=== PATIENT | female | born 1980 | race Two or more races ===

== ENCOUNTER 2024-11-07 14:54 | Emergency (ER) | payer MEDICAID, SELFPAY ==
[2024-11-07 15:18] VITALS: BP 171/90; PULSE 82; RESP 18; TEMP 36.8; O2SAT 98
--- NOTE | 2024-11-07 15:25 | PD.EDRME ---
Rapid Medical Screening Exam RME Arrival date/time: 11/07/24 14:54 44 year old f with c/o of abd pain I have greeted and performed a focused initial assessment of this patient. A comprehensive ED assessment and evaluation of the patient, analysis of all test results, and completion of the medical decision making process will be conducted by additional ED providers. Chief Complaint: Abdominal Pain Time Seen by Provider: 11/07/24 14:59 Vital signs: Vital Signs Temperature 98.2 F 11/07/24 15:18 Pulse Rate 82 11/07/24 15:18 Respiratory Rate 18 11/07/24 15:18 Blood Pressure 171/90 H 11/07/24 15:18 Pulse Oximetry (%) 98 11/07/24 15:18 Oxygen Delivery Method Room Air 11/07/24 15:18
[2024-11-07 15:40] LABS: Basophils % (Auto) 1 % (0-2.5); Eosinophils % (Auto) 0 % (0-10); Hematocrit 34.5 % (36.0-46.0); Hemoglobin 10.8 g/dL (12.0-16.0); Immature Granulocytes % (Auto) 0 % (0-0); Immature Granulocytes Auto 0.03 Thou/mm3 (0.00-0.00); Lymphocytes # (Auto) 1.4 Thou/mm3 (1.0-4.8); Lymphocytes % (Auto) 17 % (10-50); Mean Corpuscular HGB Conc 31.3 g/dl (31.0-37.0); Mean Corpuscular Hemoglobin 22.5 pg (25.0-35.0); Mean Corpuscular Volume 72 fL (80-100); Monocytes # (Auto) 0.3 Thou/mm3 (0.0-0.8); Monocytes % (Auto) 4 % (0-12); Neutrophils # (Auto) 6.5 Thou/mm3 (1.8-7.7); Neutrophils % (Auto) 79 % (37-80); Nucleated Red Blood Cell % 0 /100 WBC (0); Platelet Count 412 Thou/mm3 (140-440); RDW Standard Deviation 44.4 fL (36.4-46.3); Red Blood Count 4.79 Miln/mm3 (4.00-5.20); White Blood Count 8.3 Thou/mm3 (3.6-11.0)
[2024-11-07 15:43] LABS: Beta Hydroxybutyrate 0.4 mmol/L (<0.6)
[2024-11-07 15:59] LABS: Alanine Aminotransferase 11 U/L (10-49); Albumin/Globulin Ratio 1.4 (1.2-2.2); Alkaline Phosphatase 65 U/L (46-116); Anion Gap 8 (7-16); Aspartate Amino Transferase < 10 U/L (0-34); BUN/Creatinine Ratio 21 Ratio (12-20); Bilirubin,Total 0.4 mg/dL (0.3-1.2); Blood Urea Nitrogen 21 mg/dL (9-23); Chloride 98 mMol/L (98-107); Globulin 3.6 gm/dL (2.3-3.5); Glucose 193 mg/dL (74-106); Lipase 41 U/L (12-53); Osmolality,Calculated 279 (275-295); Potassium 4.2 mMol/L (3.4-5.1); Sodium 136 mMol/L (136-145); Total Protein 8.6 gm/dL (5.7-8.2); eGFR > 60 See Note
[2024-11-07 16:01] LABS: HCG,Qualitative Serum Negative
[2024-11-07 16:58] LABS: Collection Type, Urine Voided
[2024-11-07] MEDS: ONDANSETRON ODT 4 MG TABRAP PO (17:10)
[2024-11-07 17:29] LABS: Amorphous Crystals,Urine Present (Absent); Bacteria,Urine Rare; Bilirubin,Urine Negative (Negative); Blood,Urine Negative (Negative); Clarity,Urine Clear (Clear/Hazy); Color,Urine Lt-Yellow (Lt Yel-Yel); Glucose, Urine 1+ (Negative); Ketones,Urine 1+ (Negative); Leukocyte Esterase,Urine Negative (Negative); Nitrite,Urine Negative (Negative); Protein,Urine 3+ (Neg - Trace); RBC,Urine 6 /hpf (0-3); Specific Gravity,Urine 1.025 (1.001-1.035); Squamous Epithelial Cell,Urine 3 /hpf (0-5); Urobilinogen,Urine Negative mg/dL (0.0-1.0); WBC,Urine 2 /hpf (0-5)
[2024-11-07 17:48] VITALS: BP 213/97; PULSE 82; RESP 18; TEMP 36.6; O2SAT 100
--- NOTE | 2024-11-07 19:42 | XR_ITS ---
Examination: CT abdomen and pelvis without contrast. Coronal 3-D reconstructions. Sagittal 2-D reconstructions. Date and time of exam:November 07, 20242001 hrs. Comparison May 09, 2024 Indications: Bilateral flank pain beginning today CTDI: vol (mGy): 10.5 DLP: (mGycm): 548 Technique: Axial images of the abdomen have been obtained, 3 mm slice thickness Intravenous contrast material has not been administered. Low dose protocols were performed. One or more of the following dose reduction techniques were used; automated exposure control, adjustment of the mA and/or KV according to patient size, use of iterative reconstruction technique. Findings: No focal liver or splenic lesions No gallstones No pancreatic mass Normal adrenal glands Significant left moderate right renal parenchymal scar formation Perinephric stranding Mild wall thickening involving the pelvicalyceal systems and ureters consistent with urinary tract infection Normal appendix Anteverted uterus with multiple uterine fundal masses No bladder mass Moderate to advanced disc narrowing L5-S1 with 4 mm central lumbar disc bulge Impression: Significant left moderate right renal parenchymal scar formation Perinephric stranding, mild wall thickening pelvicalyceal systems consistent with urinary tract infection No hydronephrosis or ureteral calculi Normal appendix Recommend pelvic sonography to assess multiple uterine fundal masses
[2024-11-07] MEDS: METOCLOPRAMIDE INJ 5 MG/ML VIAL 2 ML 10 MG IM (19:52)
[2024-11-07] MEDS: KETOROLAC INJ 60 MG/2 ML VIAL IM (19:52)
[2024-11-07] MEDS: FAMOTIDINE 20 MG TABLET PO (19:53)
--- NOTE | 2024-11-07 20:00 | PC.NURSE ---
Pt taken to CT via wheelchair.
--- NOTE | 2024-11-07 20:04 | EDNOTE_ITS ---
ED Abdominal Pain RME/HPI General Chief Complaint: Abdominal Pain Stated complaint: BAD PAIN IN STOMACH X3 Time seen by provider: 11/07/24 14:59 Arrival date/time: 11/07/24 14:54 This is a 44-year-old female that comes in with complaints of epigastric pain. That radiates to her right side. Patient has some mild back pain. Patient states she was just seen at [facility] and was told that something is wrong with her stomach. Patient was given omeprazole as a prescription. Patient does not remember what the diagnosis was but was told to take omeprazole. Patient describes the pain as a sharp pain in the epigastric area that also states it wilson. Patient states she had an ultrasound done in the last few days and was told her gallbladder was okay. Patient has a history of diabetes, high blood pressure, hyperlipidemia. Patient states she did not take any of her blood pressure medications today. RME / HPI RME / HPI narrative: 11/07/24 14:54 44 year old f with c/o of abd pain I have greeted and performed a focused initial assessment of this patient. A comprehensive ED assessment and evaluation of the patient, analysis of all test results, and completion of the medical decision making process will be conducted by additional ED providers. Related Data Home Medications ?Medication ?Instructions ?Recorded ?Confirmed metformin 1,000 mg tablet 1,000 mg PO BID 05/11/2411/02 valsartan 40 mg tablet 40 mg PO QDAY 05/11/2405/11 Previous Rx's ?Medication ?Instructions ?Recorded blood sugar diagnostic (Advanced #100 ea 04/02/22 Glucose Meter Test Strips) blood-glucose meter (Accu-Chek #1 ea 04/02/22 Guide Glucose Meter) lancets 17 gauge #100 ea 04/02/22 pen needle, diabetic 29 gauge x #100 ea 04/02/22 1/2 (1st Tier Unifine Pentips) blood sugar diagnostic (FreeStyle #100 ea 05/12/24 Test strips) Allergies Allergy/AdvReac Type Severity Reaction Status Date / Time No Known Allergies Allergy Verified 11/07/24 14:56 Review of Systems Review of Systems Systems Reviewed: All systems reviewed, normal except as documented Past Medical History Past Medical History CARDIAC: Positive Hypertension ENDOCRINE: Positive Diabetes Mellitus Type 2 HEMATOLOGIC: Positive Anemia Surgical History SURGICAL: Positive Tubal Ligation and Section Social History SMOKING STATUS: Never smoker SUBSTANCE USE: does not use ALCOHOL: Never ED Exam General General appearance: Present alert and in no apparent distress Head Head exam: Present atraumatic Eye Eye exam: Present normal appearance, PERRL and EOMI ENT ENT exam: Present normal exam, normal oropharynx and mucous membranes moist Neck Neck exam: Present normal inspection, full ROM and trachea midline Chest Chest inspection: Present normal inspection and symmetric chest wall rise Respiratory Respiratory exam: Present normal lung sounds bilaterally Cardiovascular Cardiovascular exam: Present regular rate, normal rhythm and normal heart sounds Abdominal Exam Abdominal exam: Present soft Extremities Exam Extremities exam: Present normal inspection and full ROM Back Exam Back exam: Present normal inspection and full ROM Neurological Exam Neurological exam: Present alert, oriented X3 and CN II-XII intact Psychiatric Psychiatric exam: Present normal affect and normal mood Skin Skin exam: Present warm, dry, intact and normal color Course Quality Measures none Orders Category Date Time Status Blood glucose [Bedside Blood Glucose] NOW Care 11/07/24 15:[address] abdomen pelvis wo con Stat Exams 11/07/24 19:42 Completed Beta Hydroxybutyrate Stat Lab 11/07/24 15:33 Completed CBC Stat Lab 11/07/24 15:33 Completed CMP [Comprehensive Metabolic Panel] Stat Lab 11/07/24 15:33 Completed HCG,Qualitative Serum Stat Lab 11/07/24 15:33 Completed Lipase Stat Lab 11/07/24 15:33 Completed UA [Urinalysis] Stat Lab 11/07/24 16:35 Completed Famotidine [Pepcid] Med 11/07/24 19:43 Discontinued 20 mg PO X1 ONE Ketorolac Inj [Toradol Inj] Med 11/07/24 19:43 Discontinued 60 mg IM X1 ONE Metoclopramide Inj [Reglan Inj] Med 11/07/24 19:43 Discontinued 10 mg IM X1 ONE Ondansetron Odt [Zofran Odt] Med 11/07/24 15:22 Discontinued 4 mg PO X1 ONE Valsartan [Diovan] Med 11/07/24 19:43 Discontinued 40 mg PO X1 ONE cefTRIAXone [Rocephin] 1,000 mg Med 11/07/24 20:54 Discontinued Lidocaine 1% 20 ml [Xylocaine 1% 20 ML] 2.1 ml IM X1 Vital Signs Vital signs: Vital Signs Temperature 98.2 F 11/07/24 15:18 Pulse Rate 82 11/07/24 15:18 Respiratory Rate 18 11/07/24 15:18 Blood Pressure 171/90 H 11/07/24 15:18 Pulse Oximetry (%) 98 11/07/24 15:18 Oxygen Delivery Method Room Air 11/07/24 15:18 Abdominal Pain MDM MDM Narrative MDM Narrative:: This is a 44-year-old female that comes in with complaints of epigastric pain. That radiates to her right side. Patient has some mild back pain. Patient states she was just seen at [facility] and was told that something is wrong with her stomach. Patient was given omeprazole as a prescription. Patient does not remember what the diagnosis was but was told to take omeprazole. Patient describes the pain as a sharp pain in the epigastric area that also states it wilson. Patient states she had an ultrasound done I quit Eydelto in the last few days and was told her gallbladder was okay. Patient has a history of diabetes, high blood pressure, hyperlipidemia. Patient states she did not take any of her blood pressure medications today. Patient CBC shows white count 8.3, hemoglobin and hematocrit are 10.8 and 34.5, this BMP shows a glucose of 193 otherwise unremarkable, lipase 41 beta hy droxybutyrate is 0.4, hCG urine negative urine shows RBCs in her urine negative for leukocyte Estrace. Patient had a previous us pelvic here and also states she had one order by primary provider. Pt told to follow up wit primary provider in 1-2 days. Pt feels comfortable with current plan of care. Ct abdomen and pelvis: Yet he has got they have impression: Significant left moderate right renal parenchymal scar formation Perinephric stranding, mild wall thickening pelvicalyceal systems consistent with urinary tract infection No hydronephrosis or ureteral calculi Normal appendix Recommend pelvic sonography to assess multiple uterine fundal masses Patient data External records reviewed:: [facility] previous records Clinical information provided by:: patient Social determinants that could affect healthcare access:: none Patient has the following chronic illnesses:: see hpi How is presenting disease/condition affected by chronic disease/condition?: no chronic disease Evaluation data The following diagnostics were reviewed and interpreted by me:: lab results and radiology exam(s) Lab and/or radiology exams considered but not ordered:: none Interpretation Summary: see note Medications / Prescriptions Medications or Prescriptions considered but not ordered:: none Medication administrations:: Medication Administration History Discontinued Medications Ceftriaxone Sodium 1,000 mg/ (Lidocaine HCl 2.1 ml) 0 mg IM X1 ONE Stop: 11/07/24 20:55 Last Admin: 11/07/24 21:14 Dose: 1,000 mg Documented By: CCT Famotidine (Famotidine 20 Mg Tablet) 20 mg PO X1 ONE Stop: 11/07/24 19:44 Last Admin: 11/07/24 19:53 Dose: 20 mg Documented By: TC Ketorolac Tromethamine (Ketorolac Inj 60 Mg/2 Ml Vial) 60 mg IM X1 ONE Stop: 11/07/24 19:44 Last Admin: 11/07/24 19:52 Dose: 60 mg Documented By: TC Metoclopramide HCl (Metoclopramide Inj 5 Mg/Ml Vial 2 Ml) 10 mg IM X1 ONE; Protocol Stop: 11/07/24 19:44 Last Admin: 11/07/24 19:52 Dose: 10 mg Documented By: TC Ondansetron HCl (Ondansetron Odt 4 Mg Tabrap) 4 mg PO X1 ONE; Protocol Stop: 11/07/24 15:23 Last Admin: 11/07/24 17:10 Dose: 4 mg Documented By: KF Valsartan (Valsartan 40 Mg Tablet) 40 mg PO X1 ONE Stop: 11/07/24 19:44 Last Admin: 11/07/24 20:17 Dose: 40 mg Documented By: CCT see mar Consultations Consultation(s) initiated? (list below): No Diagnosis Differential diagnosis abdominal pain: abdominal pain, acute appendicitis, calculus of kidney, constipation, pancreatitis and other (uti) Most likely diagnosis given after review of the tests above:: uti Admission Indicated Admission indicated?: not indicated Admission Request Was there a request for admission?: No Disposition Plan Disposition Plan: Discharge Discharge Attestation Discharge Attestation: The patient and all family members were given an opportunity to ask questions and understood the discharge instructions. Discharge instructions specifically effects, indications for sooner follow up or return to the emergency department, and the expected course of current diagnosis. Patient condition: Stable Discharge Plan Plan Patient Disposition: HOME (Self Care) Patient condition on transfer: Stable Prescriptions/Referrals Prescriptions/Med Rec: No Action (DME) blood-glucose meter [Accu-Chek Guide Glucose Meter] Misc See Rx Instructions .Route Qty: 1 0RF Rx Instructions: As directed (DME) Advanced Gluc Meter Test Strip Strip See Rx Instructions .Route Qty: 100 0RF Rx Instructions: As directed (DME) lancets 17 gauge misc See Rx Instructions .Route Qty: 100 0RF Rx Instructions: As directed (DME) pen needle, diabetic [1st Tier Unifine Pentips] 29 gauge x 1/2 needle See Rx Instructions .Route Qty: 100 0RF Rx Instructions: As directed metformin 1,000 mg Tablet 1,000 mg PO BID valsartan 40 mg Tablet 40 mg PO QDAY (DME) FreeStyle Test Strip See Rx Instructions .Route Qty: 100 0RF Rx Instructions: As directed Referrals: Jaqueline Maloney PA-C [Primary Care Provider] - In 1 week Problem List Clinical Impression: Hematuria, UTI (urinary tract infection), Hx of pelvic mass Patient/Caregiver Discharge Instructions Discharge Activity: activity as tolerated Education Materials: ED Hematuria, ED CYSTITIS Female Adult Additional Instructions: CT abdomen and pelvis shows: Impression: Significant left moderate right renal parenchymal scar formation Perinephric stranding, mild wall thickening pelvicalyceal systems consistent with urinary tract infection No hydronephrosis or ureteral calculi Normal appendix Recommend pelvic sonography to assess multiple uterine fundal masses Follow-up with primary provider in 1 to 2 days. Come back to the emergency room if symptoms change or worsen. Please follow-up with urine culture with primary provider. Print Language: Palestinian Stand Alone Forms: Rochelle Award Info., Patient Portal Info Letter PA/RADHA Supervising Physician PA/RADHA Supervising Physician: kristan
[2024-11-07 20:17] VITALS: BP 180/100; PULSE 67
[2024-11-07] MEDS: VALSARTAN 40 MG TABLET PO (20:17)
[2024-11-07 20:20] VITALS: BP 180/100; PULSE 67; RESP 18; TEMP 37.1; O2SAT 100
[2024-11-07] MEDS: cefTRIAXone 1,000 MG, LIDOCAINE 1% 20 ML 2.1 ML IM (21:14)
[2024-11-07 21:41] VITALS: BP 154/94; PULSE 71; RESP 18; TEMP 37.1; O2SAT 98
== END 2024-11-07 21:45 | disposition home or self-care (01) ==
PROVIDERS: Physician Assistant; Emergency Provider Emergency Medicine; PCP Physician Assistant
DX: N39.0 Urinary tract infection, site not specified (principal); R31.9 Hematuria, unspecified; N28.89 Other specified disorders of kidney and ureter
CPT/HCPCS: 36415; 74176; 80053; 81001; 82010; 83690; 84703; 85025; 87086; 96372; 99284; J0696; J1885; J2765; J3490; Q0162; A9270

== ENCOUNTER 2025-01-12 07:30 | Day surgery (SDC) | payer MEDICAID, SELFPAY ==
[2025-01-11 10:51] LABS: HCG Qualitative,Urine Negative
[2025-01-11 14:24] VITALS: BMI 33.7
[2025-01-12] VITALS (11 sets, daily range): BP systolic 131–218; BP diastolic 77–117; PULSE 63–80; RESP 15–24; TEMP 36.6; O2SAT 98–100; BMI 31.6
[2025-01-12] MEDS: RINGERS LACTATED 500 ML 1,000 ML 60 ML IV (08:35)
[2025-01-12] MEDS: hydrALAZINE INJ 20 MG/ML VIAL 10 MG IV (09:00)
--- NOTE | 2025-01-12 09:19 | SUR.PHASEII ---
pt arrived to [facility] via gurney drowsy but arouses to voice, breathing unlabored, report from Haven GIBSON
--- NOTE | 2025-01-12 10:04 | SUR.PHASEII ---
pt awake, alert, able to follow commands, breathing unlabored, VS stable, pt able to tolerate oral fluids without difficulty swallowing or n/v, discharge instructions given with son present using telephone private branch exchange repairer Magdalena ID#[id number] questions answered, pt discharged via wheelchair with all belongings and copies of discharge paperwork.
== END 2025-01-12 10:04 | disposition home or self-care (01) ==
PROVIDERS: PCP Physician Assistant; Referring Provider Specialist; Visit Provider Specialist
PROC: (CPT 43239; principal; 2025-01-12 08:30)
DX: K21.00 Gastro-esophageal reflux disease with esophagitis, without bleeding (principal); K44.9 Diaphragmatic hernia without obstruction or gangrene; K31.1 Adult hypertrophic pyloric stenosis; E11.9 Type 2 diabetes mellitus without complications; Z79.84 Long term (current) use of oral hypoglycemic drugs
CPT/HCPCS: 43235; 81025; J0360; J1200; J2250; J3010; J7120; A9270

== ENCOUNTER 2025-02-09 07:30 | Day surgery (SDC) | payer MEDICAID, SELFPAY ==
[2025-02-08 13:53] VITALS: BMI 34.2
[2025-02-09] VITALS (17 sets, daily range): BP systolic 134–174; BP diastolic 84–102; PULSE 55–73; RESP 13–19; TEMP 36.3–36.9; O2SAT 92–100; BMI 32.4
[2025-02-09] MEDS: RINGERS LACTATED 1000 ML 1,000 ML 60 ML IV (09:11)
[2025-02-09] MEDS: fentaNYL CIT INJ 50 mCg/ML AMP 2ML (ASD USE ONLY) IVP (09:13)
[2025-02-09] MEDS: DiphenhydrAMINE INJ 50 MG/ML VIAL 25 MG IVP (09:13)
[2025-02-09] MEDS: MIDAZOLAM INJ 1 MG/ML VIAL 2 ML (ASD USE ONLY) 2 MG IVP (09:13)
== END 2025-02-09 10:20 | disposition home or self-care (01) ==
PROVIDERS: PCP Physician Assistant; Referring Provider Specialist; Visit Provider Specialist
PROC: 0DBE8ZX Excision of Large Intestine, Via Natural or Artificial Opening Endoscopic, Diagnostic (ICD-10-PCS; CPT 45380; principal; 2025-02-09 07:30)
DX: Z12.11 Encounter for screening for malignant neoplasm of colon (principal); K64.9 Unspecified hemorrhoids; K56.2 Volvulus
CPT/HCPCS: 45378; 81025; J1200; J2250; J3010; J7120

== ENCOUNTER 2025-02-25 22:35 | Emergency (ER) | payer MEDICAID, SELFPAY ==
[2025-02-25 23:51] VITALS: BP 113/79; PULSE 95; RESP 18; TEMP 37.3; O2SAT 96
--- NOTE | 2025-02-25 23:52 | EKG_ITS ---
[facility] Test Date: 2025-02-25 Pat Name: GISELLE PERKINS Department: Room: - Gender: Female Body Trimmer: : 1980 Requested By: ED Temporary Provider Order Number: [id number] Reading MD: ED Temporary Provider Measurements Intervals [place] Rate: 102 P: 31 SC: 128 QRS: 18 QRSD: 80 T: 45 QT: 342 QTc: 446 Interpretive Statements SINUS TACHYCARDIA ABNORMAL RHYTHM ECG No previous ECG available for comparison /store/[email or web address]/[id number]/[id number].pdf
--- NOTE | 2025-02-26 00:24 | XR_ITS ---
Examination: PA chest single view TECHNIQUE: Upright PA chest single view Date and time: February 26, 2025 12:46 AM Indications: Chest pain shortness of breath today. FINDINGS: Normal heart size Lungs are clear. The osseous structures are intact IMPRESSION: No active disease
[2025-02-26] MEDS: FAMOTIDINE 20 MG TABLET 40 MG PO (00:39)
[2025-02-26] MEDS: ONDANSETRON ODT 4 MG TABRAP PO (00:40)
[2025-02-26] MEDS: LIDOCAINE VISCOUS 2% 15 ML UDC PO (00:40)
[2025-02-26] MEDS: MG HYD/AL HYD/SIME (Maalox Reg) SUSP 30 ML UDC PO (00:40)
[2025-02-26 00:55] LABS: Basophils # (Auto) 0.1 Thou/mm3 (0.0-0.2); Basophils % (Auto) 1 % (0-2.5); Eosinophils % (Auto) 0 % (0-10); Hematocrit 33.2 % (36.0-46.0); Hemoglobin 11.3 g/dL (12.0-16.0); Immature Granulocytes % (Auto) 1 % (0-0); Immature Granulocytes Auto 0.05 Thou/mm3 (0.00-0.00); Lymphocytes # (Auto) 2.5 Thou/mm3 (1.0-4.8); Lymphocytes % (Auto) 22 % (10-50); Mean Corpuscular Hemoglobin 26.3 pg (25.0-35.0); Mean Corpuscular Volume 77 fL (80-100); Monocytes # (Auto) 0.9 Thou/mm3 (0.0-0.8); Monocytes % (Auto) 9 % (0-12); Neutrophils # (Auto) 7.6 Thou/mm3 (1.8-7.7); Neutrophils % (Auto) 68 % (37-80); Nucleated Red Blood Cell % 0 /100 WBC (0); Platelet Count 360 Thou/mm3 (140-440); RDW Standard Deviation 44.9 fL (36.4-46.3); White Blood Count 11.1 Thou/mm3 (3.6-11.0)
[2025-02-26 01:29] LABS: Alanine Aminotransferase < 7 U/L (10-49); Albumin, Serum 4.5 gm/dL (3.5-5.0); Albumin/Globulin Ratio 1.6 (1.2-2.2); Alkaline Phosphatase 59 U/L (46-116); Anion Gap 7 (7-16); Aspartate Amino Transferase 12 U/L (0-34); BUN/Creatinine Ratio 12 Ratio (12-20); Bilirubin,Total 0.5 mg/dL (0.3-1.2); Blood Urea Nitrogen 13 mg/dL (9-23); Calcium 9.7 mg/dL (8.3-10.6); Calcium (Corrected) 9.7 mg/dL (8.5-10.1); Carbon Dioxide 30.2 mMol/L (20.0-31.0); Chloride 97 mMol/L (98-107); Creatinine (Component) 1.1 mg/dL (0.6-1.3); Globulin 2.9 gm/dL (2.3-3.5); Glucose 144 mg/dL (74-106); Lipase 29 U/L (12-53); Osmolality,Calculated 271 (275-295); Potassium 3.6 mMol/L (3.4-5.1); Sodium 134 mMol/L (136-145); Total Protein 7.4 gm/dL (5.7-8.2); Troponin I < 0.020 ng/mL (0.0-0.045); eGFR > 60 See Note
[2025-02-26 02:57] VITALS: RESP 16
--- NOTE | 2025-02-26 05:19 | PD.EDCHEST ---
ED Chest Pain RME/HPI General Chief Complaint: General Adult/Misc Complain Stated Complaint: EPIGASTRIC CHEST AREA PAIN Time Seen by Provider: 02/26/25 00:24 Arrival date/time: 02/25/25 22:35 45F with history of DM, HTN, and esophagitis (confirmed recent EGD/colonoscopy) presents to ED with 1 day of burning epigastric pain that radiates up to throat after she drank some water. Limitations: no limitations Related Data Home Medications ?Medication ?Instructions ?Recorded ?Confirmed metformin 1,000 mg tablet 1,000 mg PO BID 05/11/24 02/08/25 valsartan 40 mg tablet 40 mg PO QDAY 05/11/24 02/08/25 chlorthalidone 25 mg tablet 25 mg PO QDAY 01/12/25 02/08/25 pantoprazole 40 mg tablet,delayed 40 mg PO QAM 01/12/25 02/08/25 release Previous Rx's ?Medication ?Instructions ?Recorded blood sugar diagnostic (Advanced #100 ea 04/02/22 Glucose Meter Test Strips) blood-glucose meter (Accu-Chek #1 ea 04/02/22 Guide Glucose Meter) lancets 17 gauge #100 ea 04/02/22 pen needle, diabetic 29 gauge x #100 ea 04/02/22 1/2 (1st Tier Unifine Pentips) blood sugar diagnostic (FreeStyle #100 ea 05/12/24 Test strips) ondansetron 4 mg disintegrating 4 mg PO Q8H PRN nausea and 02/26/25 tablet vomiting #14 tabs Allergies Allergy/AdvReac Type Severity Reaction Status Date / Time No Known Allergies Allergy Verified 02/09/25 08:03 Review of Systems Review of Systems Systems Reviewed: All systems reviewed, normal except as documented Constitutional Constitutional: Reports system reviewed and no additional complaints, except as documented, Denies fever(s) and Denies headache(s) ENT Ears, Nose, Mouth, and Throat: Denies disequilibrium and Denies headache(s) Cardiovascular Cardiovascular: Reports system reviewed and no additional complaints, except as documented, Reports as per HPI, Reports chest pain and Denies dyspnea Respiratory Respiratory: Reports system reviewed and no additional complaints, except as documented, Denies cough and Denies dyspnea Gastrointestinal Gastrointestinal: Reports system reviewed and no additional complaints, except as documented, Reports as per HPI, Reports abdominal pain, Denies nausea and Denies vomiting Neurologic Neurologic: Reports system reviewed and no additional complaints, except as documented, Denies confusion, Denies disequilibrium and Denies headache(s) Psychiatric Psychiatric: Denies confusion Past Medical History Past Medical History NEUROLOGIC: Negative Seizures CARDIAC: Positive Cardiac Disorders and Hypertension; Negative Congestive Heart Failure RESPIRATORY: Negative Chronic Obstructive Pulmonary Disease (COPD) or Asthma GASTROINTESTINAL: Positive Gastrointestinal Disorders (Esophagitis) and Gastroesophageal Reflux Disease GENITOURINARY: Positive Genitourinary Disorders (pyelonephritis with ecoli septicemia 2021); Negative Renal Disease REPRODUCTIVE: Negative Pelvic Inflammatory Disease MUSCULOSKELETAL: Negative Musculoskeletal Disorders ENDOCRINE: Positive Diabetes Mellitus Type 2; Negative Diabetes Mellitus Type 1 HEMATOLOGIC: Positive Anemia; Negative Sickle Cell Disease OTHER HISTORY: Negative Blood Transfusions or Anesthesia Reactions Surgical History SURGICAL: Positive Tubal Ligation and Section (x4) Social History SMOKING STATUS: Never smoker SUBSTANCE USE: does not use ED Exam General Limitations: Present no limitations General appearance: Present alert and in no apparent distress Head Head exam: Present atraumatic Eye Eye exam: Present normal appearance, PERRL and EOMI ENT ENT exam: Present normal exam, normal oropharynx and mucous membranes moist Neck Neck exam: Present normal inspection, full ROM and trachea midline Chest Chest inspection: Present normal inspection and symmetric chest wall rise Respiratory Respiratory exam: Present normal lung sounds bilaterally Cardiovascular Cardiovascular exam: Present regular rate, normal rhythm and normal heart sounds Abdominal Exam Abdominal exam: Present soft and normal bowel sounds Extremities Exam Extremities exam: Present normal inspection and full ROM Back Exam Back exam: Present normal inspection and full ROM Neurological Exam Neurological exam: Present alert, oriented X3 and CN II-XII intact Psychiatric Psychiatric exam: Present normal affect and normal mood Skin Skin exam: Present warm, dry, intact and normal color Course Quality Measures none Orders Category Date Time Status EKG (ED ONLY) *Do not use* NOW Care 02/25/25 23:52 Completed EKG (ED Only) Stat Exams 02/25/25 23:52 Draft XR chest 1V portable Stat Exams 02/26/25 00:24 Taken CBC Stat Lab 02/26/25 00:39 Completed Comprehensive Metabolic Panel Stat Lab 02/26/25 00:39 Completed Lipase Stat Lab 02/26/25 00:39 Completed Troponin I Stat Lab 02/26/25 00:39 Completed Famotidine [Pepcid] Med 02/26/25 00:24 Discontinued 40 mg PO X1 ONE Lidocaine 2% Viscous [Xylocaine 2% Viscous] Med 02/26/25 00:24 Discontinued 15 ml PO X1 ONE Ondansetron Odt [Zofran Odt] Med 02/26/25 00:24 Discontinued 4 mg PO X1 ONE mg Hyd/Al Hyd/Yg Susp [Maalox Susp] Med 02/26/25 00:24 Discontinued 30 ml PO X1 ONE Vital Signs Vital signs: Vital Signs Temperature 99.2 F 02/25/25 23:51 Pulse Rate 95 02/25/25 23:51 Respiratory Rate 18 02/25/25 23:51 Blood Pressure 113/79 02/25/25 23:51 Pulse Oximetry (%) 96 02/25/25 23:51 Oxygen Delivery Method Room Air 02/25/25 23:51 O2 at 96% on RA and WNLs Chest Pain MDM Narrative MDM Narrative:: 45F with history of DM, HTN, and esophagitis (confirmed recent EGD/colonoscopy) presents to ED with 1 day of burning epigastric pain that radiates up to throat after she drank some water. Physical exam reveals normal WOB. Patient is afebrile, calm, and alert. EKG is sinus tach of 102. Wet CXR read unremarkable pending official report. No leukocytosis. CMP unremarkable. Trop normal. GI cocktail relieved symptoms. Patient data External records reviewed:: [facility] previous records Clinical information provided by:: patient Social determinants that could affect healthcare access:: none Patient has the following chronic illnesses:: DM and HTN How is presenting disease/condition affected by chronic disease/condition?: exacerbated by Evaluation data The following diagnostics were reviewed and interpreted by me:: lab results, radiology exam(s) and EKG tracing(s) Lab and/or radiology exams considered but not ordered:: ordered Interpretation Summary: above Medications / Prescriptions Medications or Prescriptions considered but not ordered:: ordered Medication administrations:: Medication Administration History Discontinued Medications Al Hydrox/Mg Hydrox/Simethicone (Mg Hyd/Al Hyd/Yg (Maalox Reg) Susp 30 Ml Udc) 30 ml PO X1 ONE Stop: 02/26/25 00:25 Last Admin: 02/26/25 00:40 Dose: 30 ml Documented By: Famotidine (Famotidine 20 Mg Tablet) 40 mg PO X1 ONE Stop: 02/26/25 00:25 Last Admin: 02/26/25 00:39 Dose: 40 mg Documented By: Lidocaine HCl (Lidocaine Viscous 2% 15 Ml Udc) 15 ml PO X1 ONE Stop: 02/26/25 00:25 Last Admin: 02/26/25 00:40 Dose: 15 ml Documented By: Ondansetron HCl (Ondansetron Odt 4 Mg Tabrap) 4 mg PO X1 ONE; Protocol Stop: 02/26/25 00:25 Last Admin: 02/26/25 00:40 Dose: 4 mg Documented By: above Consultations Consultation(s) initiated? (list below): No Diagnosis Chest Pain Differential Diagnosis: fracture of rib, pneumothorax, stable angina, unstable angina pectoris, atypical chest pain, st elevation myocardial infarction, costochondritis, chest pain, biliary colic and other (esophagitis) Most likely diagnosis given after review of the tests above:: esophagitis Admission Indicated Admission indicated?: not indicated Admission Request Was there a request for admission?: No Disposition Plan Disposition Plan: Discharge Discharge Attestation Discharge Attestation: The patient and all family members were given an opportunity to ask questions and understood the discharge instructions. Discharge instructions specifically effects, indications for sooner follow up or return to the emergency department, and the expected course of current diagnosis. Patient condition: Stable Discharge Plan Plan Patient Disposition: HOME (Self Care) Discharge Disposition comment: Stable Prescriptions/Referrals Prescriptions/Med Rec: New ondansetron 4 mg tablet,disintegrating 4 mg PO Q8H PRN (Reason: nausea and vomiting) Qty: 14 0RF No Action (DME) blood-glucose meter [Accu-Chek Guide Glucose Meter] Misc See Rx Instructions .Route Qty: 1 0RF Rx Instructions: As directed (DME) Advanced Gluc Meter Test Strip Strip See Rx Instructions .Route Qty: 100 0RF Rx Instructions: As directed (DME) lancets 17 gauge misc See Rx Instructions .Route Qty: 100 0RF Rx Instructions: As directed (DME) pen needle, diabetic [1st Tier Unifine Pentips] 29 gauge x 1/2 needle See Rx Instructions .Route Qty: 100 0RF Rx Instructions: As directed pantoprazole 40 mg tablet,delayed release (DR/EC) 40 mg PO QAM chlorthalidone 25 mg tablet 25 mg PO QDAY metformin 1,000 mg Tablet 1,000 mg PO BID valsartan 40 mg Tablet 40 mg PO QDAY (DME) FreeStyle Test Strip See Rx Instructions .Route Qty: 100 0RF Rx Instructions: As directed Referrals: Jaqueline Maloney PA-C [Primary Care Provider] - In 1 week Problem List Clinical Impression: Esophagitis Patient/Caregiver Discharge Instructions Education Materials: Esophagitis Additional Instructions: Please follow-up with PCP within 24-48 hours and return immediately if symptoms worsen. Print Language: Kittitian Stand Alone Forms: Patient Portal Info Letter PA/CAVITY PUMP OPERATOR Supervising Physician PA/RADHA Supervising Physician: Dr. Alicea
== END 2025-02-26 02:58 | disposition home or self-care (01) ==
PROVIDERS: Physician Assistant; Emergency Provider Emergency Medicine; PCP Physician Assistant
DX: K20.90 Esophagitis, unspecified without bleeding (principal); R00.0 Tachycardia, unspecified; R07.9 Chest pain, unspecified; R06.02 Shortness of breath; I10 Essential (primary) hypertension
CPT/HCPCS: 36415; 71045; 80053; 83690; 84484; 85025; 93005; 99283; J3490; Q0162; A9270

== ENCOUNTER 2025-08-25 10:28 | Observation (INO) | payer MEDICAID, SELFPAY ==
[2025-08-25 11:01] VITALS: BP 119/78; PULSE 60; RESP 16; TEMP 37.4; O2SAT 99; BMI 33.3
--- NOTE | 2025-08-25 11:15 | XR_ITS ---
Examination: CT abdomen and pelvis without contrast. Coronal 3-D reconstructions. Sagittal 2-D reconstructions. Date and time of exam: August 25, 2025, 1459 hours INDICATIONS: Mid abdominal pain beginning 1 year ago COMPARISON: November 07, 2024 CTDI: vol (mGy): 10.1 DLP: (mGycm): 571 Technique: Axial images of the abdomen have been obtained, 3 mm slice thickness Intravenous contrast material has not been administered. Low dose protocols were performed. One or more of the following dose reduction techniques were used; automated exposure control, adjustment of the mA and/or KV according to patient size, use of iterative reconstruction technique. Findings: No visualized liver or splenic lesion No gallstones No pancreatic or adrenal mass Atrophic left kidney significant left renal scar formation, moderate right renal scar formation No renal or ureteral calculi, no hydronephrosis Normal appendix No bowel obstruction Abundant stool in the rectum with mild thickening of the rectal wall No bladder mass or bladder calculi Moderate disc narrowing L5-S1 Anteverted uterus with 3 cm uterine fundal mass IMPRESSION: Atrophic left kidney with significant left renal scar formation, moderate right renal scar formation Normal appendix No bowel obstruction Mild thickening of the rectal wall, differential would include proctitis No bladder mass or bladder calculi Consider pelvic sonography to assess uterine mass
--- NOTE | 2025-08-25 11:15 | PD.EDRME ---
Rapid Medical Screening Exam RME Arrival date/time: 08/25/25 10:28 45-year-old female presents to the Emergency Department for complaint of abdominal pain Chief Complaint: Abdominal Pain Vital signs: Vital Signs Temperature 99.4 F 08/25/25 11:01 Pulse Rate 60 08/25/25 11:01 Respiratory Rate 16 08/25/25 11:01 Blood Pressure 119/78 08/25/25 11:01 Pulse Oximetry (%) 99 08/25/25 11:01 Oxygen Delivery Method Room Air 08/25/25 11:01 Vital signs reviewed by provider: Yes Exam: On exam patient is tenderness to her abdomen Clinical Impression: Lab work and imaging ordered Patient reports she recently had endoscopy
[2025-08-25 11:31] LABS: Basophils # (Auto) 0.1 Thou/mm3 (0.0-0.2); Basophils % (Auto) 1 % (0-2.5); Eosinophils # (Auto) 0.1 Thou/mm3 (0.0-0.5); Eosinophils % (Auto) 1 % (0-10); Hematocrit 36.9 % (36.0-46.0); Hemoglobin 12.5 g/dL (12.0-16.0); Immature Granulocytes Auto 0.08 Thou/mm3 (0.00-0.00); Lymphocytes # (Auto) 2.6 Thou/mm3 (1.0-4.8); Lymphocytes % (Auto) 28 % (10-50); Mean Corpuscular HGB Conc 33.9 g/dl (31.0-37.0); Mean Corpuscular Hemoglobin 29.1 pg (25.0-35.0); Mean Corpuscular Volume 86 fL (80-100); Monocytes # (Auto) 0.9 Thou/mm3 (0.0-0.8); Monocytes % (Auto) 9 % (0-12); Neutrophils # (Auto) 5.7 Thou/mm3 (1.8-7.7); Neutrophils % (Auto) 60 % (37-80); Nucleated Red Blood Cell # 0.00 Thou/mm3 (0.00-0.00); Nucleated Red Blood Cell % 0 /100 WBC (0); Platelet Count 312 Thou/mm3 (140-440); RDW Standard Deviation 42.0 fL (36.4-46.3); Red Blood Count 4.30 Miln/mm3 (4.00-5.20); White Blood Count 9.4 Thou/mm3 (3.6-11.0)
[2025-08-25 12:05] LABS: Alanine Aminotransferase 9 U/L (10-49); Albumin, Serum 4.9 gm/dL (3.5-5.0); Albumin/Globulin Ratio 1.6 (1.2-2.2); Alkaline Phosphatase 57 U/L (46-116); Anion Gap 11 (7-16); Aspartate Amino Transferase 15 U/L (0-34); BUN/Creatinine Ratio 15 Ratio (12-20); Bilirubin,Total 0.5 mg/dL (0.3-1.2); Blood Urea Nitrogen 32 mg/dL (9-23); Calcium 10.1 mg/dL (8.3-10.6); Calcium (Corrected) 10.1 mg/dL (8.5-10.1); Carbon Dioxide 31.8 mMol/L (20.0-31.0); Chloride 94 mMol/L (98-107); Creatinine (Component) 2.2 mg/dL (0.6-1.3); Estimated Creatinine Clearance 36.7 mL/min (>60); Globulin 3.1 gm/dL (2.3-3.5); Glucose 157 mg/dL (74-106); Lipase 43 U/L (12-53); Osmolality,Calculated 283 (275-295); Potassium 3.9 mMol/L (3.4-5.1); Sodium 137 mMol/L (136-145); Total Protein 8.0 gm/dL (5.7-8.2); eGFR 28 See Note
[2025-08-25 12:21] LABS: Collection Type, Urine Clean Catch
[2025-08-25 12:37] LABS: HCG Qualitative,Urine Negative
[2025-08-25 12:46] LABS: Bacteria,Urine 3+; Bilirubin,Urine Negative (Negative); Blood,Urine Negative (Negative); Clarity,Urine Turbid (Clear/Hazy); Color,Urine Yellow (Lt Yel-Yel); Glucose, Urine Negative (Negative); Hyaline Casts,Urine < 1 /hpf (0-1); Ketones,Urine Negative (Negative); Leukocyte Esterase,Urine Positive (Negative); Nitrite,Urine Positive (Negative); PH,Urine 6.5 (5.0-7.0); Protein,Urine Trace (Neg - Trace); RBC,Urine 7 /hpf (0-3); Specific Gravity,Urine 1.019 (1.001-1.035); Squamous Epithelial Cell,Urine 7 /hpf (0-5); Urobilinogen,Urine Negative mg/dL (0.0-1.0); WBC,Urine 30 /hpf (0-5)
[2025-08-25 12:54] LABS: Culture Indicated,Urine Yes
[2025-08-25 17:04] VITALS: BP 126/82; PULSE 73; RESP 17; TEMP 37.2; O2SAT 95
--- NOTE | 2025-08-25 17:30 | PD.EDNV ---
Nausea/Vomit./Diarrhea-RME/HPI General Chief complaint: Abdominal Pain Stated complaint: ABD PAIN W/ VOMITING, 06/18 Time Seen by Provider: 08/25/25 12:14 Arrival date/time: 08/25/25 10:28 45-year-old female patient came in for evaluation regarding abdominal pain. Patient been having abdominal pain for the last 3 days, associated with nausea vomiting, cannot take anything down. Patient denies any fever denies any cough denies any other complaints no medication was taken prior to ER visit. Denies any history of kidney problem in the past. RME / HPI RME / HPI Narrative: 08/25/25 10:28 45-year-old female presents to the Emergency Department for complaint of abdominal pain Exam: On exam patient is tenderness to her abdomen Impression: Lab work and imaging ordered Patient reports she recently had endoscopy Related Data Home Medications ?Medication ?Instructions ?Recorded ?Confirmed metformin 1,000 mg tablet 1,000 mg PO BID 05/11/24 08/26/25 valsartan 40 mg tablet 40 mg PO QDAY 05/11/24 08/26/25 chlorthalidone 25 mg tablet 25 mg PO QDAY 01/12/25 08/26/25 amiodarone 200 mg tablet 200 mg PO QDAY 08/26/25 08/26/25 apixaban 5 mg tablet (Eliquis) 5 mg PO QDAY 08/26/25 08/26/25 escitalopram oxalate 5 mg tablet 5 mg PO QDAY 08/26/25 08/26/25 metoprolol tartrate 25 mg tablet 25 mg PO Q12H 08/26/25 08/26/25 simvastatin 20 mg tablet 20 mg PO HS 08/26/25 08/26/25 sitagliptin phosphate 100 mg 100 mg PO QDAY 08/26/25 08/26/25 tablet (Januvia) venlafaxine 75 mg capsule,extended 75 mg PO QDAY 08/26/25 08/26/25 release 24 hr Previous Rx's ?Medication ?Instructions ?Recorded blood sugar diagnostic (Advanced #100 ea 04/02/22 Glucose Meter Test Strips) blood-glucose meter (Accu-Chek #1 ea 04/02/22 Guide Glucose Meter) lancets 17 gauge #100 ea 04/02/22 pen needle, diabetic 29 gauge x #100 ea 07/25/22 1/2 (1st Tier Unifine Pentips) blood sugar diagnostic (FreeStyle #100 ea 05/12/24 Test strips) ondansetron 4 mg disintegrating 4 mg PO Q8H PRN nausea and 02/26/25 tablet vomiting #14 tabs Allergies Allergy/AdvReac Type Severity Reaction Status Date / Time milk Allergy Severe Diarrhea Verified 08/25/25 10:34 Review of Systems Review of Systems Narrative Review of Systems: Review of system reviewed and within normal limits except mentioned in HPI ED Exam Narrative Physical exam: VITAL SIGNS: Reviewed. GENERAL APPEARANCE: Alert and interactive, follows commands, no acute distress, HEAD AND FACE: Non-traumatic. ENT: PERRL, pink conjunctivitis, eyelid no trauma, Mucous membrane moist. NECK: Supple, nontender, no nuchal rigidity. CHEST: No tenderness, no crepitus, no paradoxical movement, no retractions. LUNGS: Clear, well ventilated, symmetric, no rales, no wheezing, no ronchi, no stridor, good breath sounds bilaterally. HEART: Regular rate, regular rhythm, no murmur, no gallops. ABDOMEN: Soft, positive bowel sounds, nondistended, no guarding, epigastric tenderness, no rebound, no masses, RECTAL: Deferred. GENITAL: Deferred. NEUROLOGICAL: Gross motor function intact sensory function intact, Appropriate for age. MUSCULOSKELETAL: low back nontender, full range of motion. EXTREMITIES: Nontender, full range of motion. SKIN: Color pink, dry, no rash, no lacerations, no abrasions, no contusions. LYMPHATICS: Deferred. Course Quality Measures none Orders Category Date Time Status COVID-19 Screening Questionnaire NOW Care 08/25/25 22:04 Active Decision to Admit X1 Care 08/25/25 22:[address] abdomen pelvis wo con Stat Exams 08/25/25 11:15 Completed BMP [Basic Metabolic Panel] Stat Lab 08/25/25 20:39 Completed CBC Stat Lab 08/25/25 11:22 Completed Comprehensive Metabolic Panel Stat Lab 08/25/25 11:22 Completed HCG Qualitative,Urine Stat Lab 08/25/25 11:30 Completed Lipase Stat Lab 08/25/25 11:22 Completed UA, C/S IF [Urinalysis, C/S if Indicated] Stat Lab 08/25/25 11:30 Completed Urine Culture Stat Lab 08/25/25 11:30 Results Famotidine Inj [Pepcid Inj] Med 08/25/25 17:29 Discontinued 20 mg IVP X1 ONE Ondansetron Inj [Zofran Inj] Med 08/25/25 17:29 Discontinued 4 mg IVP X1 ONE Ringers Lactated 1000 ml [Lactated Ringers] 1,000 ml Med 08/25/25 17:29 Discontinued IV 999 mls/hr Ringers Lactated 1000 ml [Lactated Ringers] 1,000 ml Med 08/25/25 17:29 Discontinued IV 999 mls/hr cefTRIAXone/D5w 1gm IV premix [Rocephin/D5w 1gm IV Med 08/25/25 17:29 Discontinued premix] 1 gm in 50 ml IV X1 Vital Signs Vital signs: Vital Signs Temperature 99.4 F 08/25/25 11:01 Pulse Rate 60 08/25/25 11:01 Respiratory Rate 16 08/25/25 11:01 Blood Pressure 119/78 08/25/25 11:01 Pulse Oximetry (%) 99 08/25/25 11:01 Oxygen Delivery Method Room Air 08/25/25 11:01 Nausea/Vomiting/Diarrhea MDM Narrative MDM Narrative:: 45-year-old female patient came in for evaluation regarding abdominal pain. Patient been having abdominal pain for the last 3 days, associated with nausea vomiting, cannot take anything down. Patient denies any fever denies any cough denies any other complaints no medication was taken prior to ER visit. Denies any history of kidney problem in the past. Initial creatinine was noted to be 2.2, BUN of 32. Urinalysis positive for UTI CT scan of the abdomen pelvis showed Atrophic left kidney with significant left renal scar formation, moderate right renal scar formation Normal appendix No bowel obstruction Mild thickening of the rectal wall, differential would include proctitis No bladder mass or bladder calculi Consider pelvic sonography to assess uterine mass Patient received IV ceftriaxone, 2 L of IV fluids, Zofran and Pepcid. Repeat BMP showed creatinine went down to 2.0, BUN 26. Spoke with hospitalist, discussed the case, who admitted the patient. Patient data External records reviewed:: None Clinical information provided by:: patient and family Social determinants that could affect healthcare access:: none Patient has the following chronic illnesses:: Hypertension How is presenting disease/condition affected by chronic disease/condition?: exacerbated by Evaluation data The following diagnostics were reviewed and interpreted by me:: lab results and radiology exam(s) Lab and/or radiology exams considered but not ordered:: None Interpretation Summary: See above Medications / Prescriptions Medications / Prescriptions considered but not ordered:: None Medication administrations:: Medication Administration History Acetaminophen (Acetaminophen 325 Mg Tablet) 650 mg PO Q6H PRN PRN Reason: Fever >100.4 Stop: 09/25/25 00:01 Dextrose (Dextrose 50%-Water Inj 50 Ml Syringe) 25 ml IV Q15MIN PRN PRN Reason: BG 50-70 responsive npo pt Stop: 09/25/25 02:47 Dextrose (Dextrose 50%-Water Inj 50 Ml Syringe) 50 ml IV Q15MIN PRN PRN Reason: BG <50 OR BG <70 & pt unresponsive Stop: 09/25/25 02:47 Glucagon (Glucagon Inj 1 Mg Vial) 1 mg IM Q15MIN PRN PRN Reason: BG <70, and no IV access Hydralazine HCl (Hydralazine Hcl 10 Mg Tablet) 10 mg PO X1 PRN PRN Reason: Hypertensive Emergency Stop: 09/25/25 00:23 Sodium Chloride (Ns) 1,000 mls @ 100 mls/hr IV .Q10H FRANCISCO JAVIER Stop: 09/25/25 04:36 Last Admin: 08/26/25 05:53 Dose: 100 mls/hr Documented By: Insulin Human Lispro (Insulin Lispro (Admelog) 1 Unit/0.01 Ml Unit) 0 unit SC AC FRANCISCO JAVIER; Protocol Stop: 09/25/25 07:29 Last Admin: 08/26/25 07:29 Dose: Not Given Documented By: RICHARD Non-Admin Reason: Per Protocol Ondansetron HCl (Ondansetron Inj 2 Mg/Ml Inj 2 Ml) 4 mg IVP Q6H PRN; Protocol PRN Reason: NAUSEA OR VOMITING Stop: 09/25/25 00:01 Last Admin: 08/26/25 07:36 Dose: 4 mg Documented By: RICHARD Oxycodone/Acetaminophen (Oxycodone/Apap 5/325 Tablet) 1 tab PO Q6HR PRN PRN Reason: PAIN SCALE 4-10(Mod-Sev Stop: 08/31/25 00:21 Last Admin: 08/26/25 10:52 Dose: 1 tab Documented By: RICHARD Pantoprazole Sodium (Pantoprazole Inj 40 Mg Vial) 40 mg IVP BID FRANCISCO JAVIER Stop: 09/25/25 08:59 Last Admin: 08/26/25 08:37 Dose: 40 mg Documented By: RICHARD Discontinued Medications Al Hydrox/Mg Hydrox/Simethicone (Mg Hyd/Al Hyd/Yg (Maalox Reg) Susp 30 Ml Udc) 30 ml PO X1 ONE Stop: 08/26/25 00:23 Last Admin: 08/26/25 00:54 Dose: 30 ml Documented By: RICHARD(2) Famotidine (Famotidine Inj 10 Mg/Ml Vial 2 Ml) 20 mg IVP X1 ONE Stop: 08/25/25 17:30 Last Admin: 08/25/25 18:02 Dose: 20 mg Documented By: TEODORO Lactated Ringer's (Lactated Ringers) 1,000 mls @ 999 mls/hr IV .Q1H1M ONE Stop: 08/25/25 18:29 Last Infusion: 08/25/25 19:25 Dose: Infused Documented By: Admin: 08/25/25 18:24 Dose: 999 mls/hr Documented By: TEODORO Ceftriaxone Sodium/Dextrose (Rocephin/D5w 1gm Iv Premix) 1 gm in 50 mls @ 100 mls/hr IV X1 ONE Stop: 08/25/25 17:58 Last Infusion: 08/25/25 18:32 Dose: Infused Documented By: Admin: 08/25/25 18:02 Dose: 100 mls/hr Documented By: TEODORO Lactated Ringer's (Lactated Ringers) 1,000 mls @ 999 mls/hr IV .Q1H1M ONE Stop: 08/25/25 18:29 Last Infusion: 08/25/25 20:22 Dose: Infused Documented By: Admin: 08/25/25 19:21 Dose: 999 mls/hr Documented By: AC Sodium Chloride (Ns) 1,000 mls @ 75 mls/hr IV .[id number] [facility] Stop: 09/25/25 00:14 Last Admin: 08/26/25 00:31 Dose: 75 mls/hr Documented By: SILVANO Ondansetron HCl (Ondansetron Inj 2 Mg/Ml Inj 2 Ml) 4 mg IVP X1 ONE; Protocol Stop: 08/25/25 17:30 Last Admin: 08/25/25 19:13 Dose: Not Given Documented By: AC Non-Admin Reason: Patient Refused See above Consultations Consultation(s) initiated? (list below): No Diagnosis Nausea Differential Diagnosis: gastroenteritis and dehydration Most likely diagnosis given after review of the tests above:: ORLIN, UTI Admission Indicated Admission indicated?: indicated Admission Request Was there a request for admission?: Yes Admission Attestation Admission request attestation: Discussed case with Hospitalist service regarding admission. Discussed patients ED course, exam findings, labs, and radiology results. The Hospitalist [agrees, to accept the patient for admission. Disposition Plan Disposition Plan: Admit Discharge Plan Plan Patient Disposition: Admit Acute Care w/in Hospital Problem List Clinical Impression: ORLIN (acute kidney injury), UTI (urinary tract infection), Nausea & vomiting, Abdominal pain Patient/Caregiver Discharge Instructions Discharge Activity: activity as tolerated
[2025-08-25 17:59] VITALS: BP 125/74; PULSE 60; RESP 16; TEMP 36.9; O2SAT 100
[2025-08-25] MEDS: FAMOTIDINE INJ 10 MG/ML VIAL 2 ML 20 MG IVP (18:02)
[2025-08-25] MEDS: cefTRIAXone/D5w 1gm IV premix 1 GM/50 ML BAG IV (18:02)
[2025-08-25] MEDS: RINGERS LACTATED 1000 ML 1,000 ML 999 ML IV ×2 (18:24→19:21)
[2025-08-25 20:02] VITALS: BP 138/83; PULSE 60; RESP 18; TEMP 36.8; O2SAT 96
[2025-08-25 21:23] LABS: Anion Gap 9 (7-16); BUN/Creatinine Ratio 13 Ratio (12-20); Blood Urea Nitrogen 26 mg/dL (9-23); Calcium 9.3 mg/dL (8.3-10.6); Carbon Dioxide 30.1 mMol/L (20.0-31.0); Chloride 97 mMol/L (98-107); Creatinine (Component) 2.0 mg/dL (0.6-1.3); Estimated Creatinine Clearance 40.4 mL/min (>60); Glucose 147 mg/dL (74-106); Osmolality,Calculated 279 (275-295); Sodium 136 mMol/L (136-145); eGFR 31 See Note
[2025-08-25 21:25] LABS: Potassium 4.3 mMol/L (3.4-5.1)
[2025-08-25 23:00] VITALS: BP 144/84; PULSE 60; RESP 18; TEMP 36.8; O2SAT 96
[2025-08-26] VITALS (8 sets, daily range): BP systolic 130–156; BP diastolic 80–95; PULSE 55–66; RESP 16–97; TEMP 36.2–36.9; O2SAT 94–99; BMI 33.7
--- NOTE | 2025-08-26 00:27 | ESHP_ITS ---
<Statement entered by Darren Dunlap MD - 08/26/25 04:41> 45-year-old female with significant past medical history of diabetes mellitus, hypertension, hyperlipidemia, hiatal hernia diagnosed in September 2024 and supposed to undergo repair in August 30, 2025 presented to the hospital with chief complaints of epigastric pain, vomitings since 5 days. Denies fever, outside food intake, sick contacts, hematemesis, melena, decreased urine output. Reported that she is following with director for beauty [employer], Dr. Yang in [place] as she was found to have arrhythmia when she went for cardiac clearance for hernial repair. Vitals at the time of admission are stable. On physical examination, noted to have mild epigastric tenderness. Labs at the time of admission are significant for chloride 94, bicarb 31.8, BUN 32, creatinine 2.2. Patient was given 2 L of bolus in the ED and repeat creatinine is noted to be 2. Urine analysis showed turbid urine with 30 WBC, 7 RBC, 3+ bacteriuria. Denies symptoms suggestive of urinary tract infection as of now. Abdomen/pelvis CT was done that showed atrophic kidney with significant left renal scar formation, moderate right renal scar formation. Anteverted uterus with 3 cm uterine fundal mass which could be a fibroid. Patient is admitted in the hospital for observation in view of intractable vomiting, abdominal pain and ORLIN, likely prerenal in the setting of vomitings. Baseline creatinine is 1.1 as of February 2025. Will continue IV fluids, antibiotics per UTI, strict intake and output. Will avoid nephrotoxic medications. Will continue to monitor renal functions. Received a dose of ceftriaxone in the ED. Repeat urine analysis is ordered as the urinalysis appears to be contaminated. I have personally seen and examined the patient, agree with residents assessment and plan Patient plan of care was discussed with the attending physician, Dr. Karen Dunlap, PGY2 <Statement entered by Zhao Jones DO - 08/26/25 03:05> Patient was seen and examined by me. After the review of the clinical data, I agree that the patient will need an admission on observation status for ongoing nausea and vomiting causing ORLIN in addition to workup showing potential UTI Plan of care discussed with patient who is in agreement. I Zhao Jones DO, attest that I was physically present for gonzalez portions of evaluation, examined the patient, reviewed the labs and imaging, and discussed the plan of care and management with the residents team. I agree with the findings and plans documented above. Documentation for date of: 08/26/25 [facility] History of Present Illness History of present illness: HPI: 45-year-old female with past medical history of hypertension, diabetes, and hyperlipidemia presented to the ED in the evening of 08/25/2025 with intractable nausea and vomiting. Patient mentioned that she has had midepigastric pain and associated nausea and vomiting for the past year. She stated that it is difficult to remember which days she has had vomiting but endorsed a constant dull ache in the mid epigastric region that has been going on for the past year. It is not associated with meals and occurs when she first wakes up in the morning. She denied diarrhea hematochezia or melena. She was found to have a creatinine of 2.2 and BUN of 32. She received 2 L of fluid in the ED and her creatinine improved to 2.0. She was also found to have a UTI. She denied dysuria frequency or urgency. Of note the patient was scheduled on August 30 for a hernia repair surgery with a surgeon in [place]. She mentioned that it was canceled due to her having an arrhythmia. She follows Dr. Yang for cardiology. Patient was admitted to observation for intractable nausea and vomiting, ORLIN, and UTI. ED Course: * Significant vitals on arrival: Vitals within normal limits on arrival * Significant labs: Chloride 94, bicarb 31.8, BUN 32, creatinine 2.2, glucose 157 * Imaging: CTAP without contrast showed atrophic left kidney with significant left renal scarring, moderate right renal scarring, mild thickening of the rectal wall, 3 cm uterine fundal mass. * Urine: Turbid, 7 RBC, 30 WBC, 7 squamous epithelial cells, 3+ bacteria, leukocyte esterase positive * ED intervention: Patient received 1 g ceftriaxone, 20 mg IV push famotidine, 2 L of LR, 4 mg IV push of ondansetron, and Maalox History: * Past medical history: As above in HPI * Surgical history: Noncontributory * Social history: Occasional alcohol, denies tobacco or illicit drug use Allergies: * Milk, causes diarrhea Home Medications: (Pending Med Rec) * Chlorthalidone 25 mg daily * Metformin 1000 mg p.o. twice daily * Ondansetron 4 mg p.o. every 8 hours as needed * Pantoprazole 40 mg daily * Valsartan 40 mg daily CODE STATUS: DNR/DNI Review of Systems Review of Systems Narrative Review of Systems: Review of Systems: * General: Denies fevers, chills. * HEENT: Denies headache, congestion, or sore throat. * Cardiac: Denies chest pain or palpitations. * Pulmonary: Denies shortness of breath or cough. * GI: 1 year history of mid epigastric dull aching pain that is constant, sporadic vomiting over the past year. Denies diarrhea, constipation, melena, or hematochezia. * : Denies dysuria, hematuria, frequency, or urgency. * MSK: Denies pain in the extremities, joints, or myalgias. * Neuro: Denies weakness, numbness, vision changes, or speech difficulty. Exam Vital Signs Temp Pulse Resp BP Pulse Ox O2 Del Method 98.5 F 56 L 16 150/84 H 99 Room Air 08/26/25 00:01 08/26/25 00:01 08/26/25 00:01 08/26/25 00:01 08/26/25 00:01 08/26/25 00:01 Narrative Exam General: Awake and in no acute distress. Conversational and non-toxic appearing. Neurologic: GCS 15. Alert and oriented x3, no gross neurological deficit, and patient able to move all 4 extremities. HEENT: Normocephalic, atraumatic, mucous membranes moist. Pupils reactive to light. Heart: Regular rate and rhythm, normal S1 and S2, no murmurs. Lungs: Clear to auscultation bilaterally with no wheezing or crackles. Abdomen: Pain on deep palpation of the mid epigastric region, no guarding or rebound tenderness. Extremities: No edema. 2+ radial and dorsalis pedis pulses bilaterally. Skin: Warm. Dry. No rash or ecchymoses. Results: Labs 08/25/25 11:22 08/25/25 20:39 Labs: Short CBC 08/25/25 Range/Units 11:22 WBC 9.4 (3.6-11.0) Thou/mm3 Hgb 12.5 (12.0-16.0) g/dL Hct 36.9 (36.0-46.0) % Plt Count 312 (140-440) Thou/mm3 BMP 08/25/25 08/25/25 11:22 20:39 Sodium 137 136 Potassium 3.9 4.3 Chloride 94 L 97 L Carbon Dioxide 31.8 H 30.1 BUN 32 H 26 H Creatinine 2.2 H 2.0 H Glucose 157 H 147 H Calcium 10.1 9.3 Liver Function 08/25/25 Range/Units 11:22 Total Bilirubin 0.5 (0.3-1.2) mg/dL AST 15 (0-34) U/L ALT 9 L (10-49) U/L Alkaline Phosphatase 57 (46-116) U/L Albumin 4.9 (3.5-5.0) gm/dL Urine 08/25/25 Range/Units 11:30 Urine Color Yellow (Lt Yel-Yel) Urine Clarity Turbid A (Clear/Hazy) Urine pH 6.5 (5.0-7.0) Ur Specific [place] 1.019 (1.001-1.035) Urine Protein Trace (Neg - Trace) Urine Glucose (UA) Negative (Negative) Quality Measures Quality Measures VTE prophylaxis Medications Home Medications and Allergies Home Medications ?Medication ?Instructions ?Recorded ?Confirmed ?Type metformin 1,000 mg tablet 1,000 mg PO BID 05/11/2411/03 History valsartan 40 mg tablet 40 mg PO QDAY 05/11/2402/08 History chlorthalidone 25 mg tablet 25 mg PO QDAY 01/12/2511/03 History pantoprazole 40 mg tablet,delayed 40 mg PO QAM 5 02/08/25 History release Allergies Allergy/AdvReac Type Severity Reaction Status Date / Time milk Allergy Severe Diarrhea Verified 08/25/25 10:34 Visit Medications Acetaminophen (Acetaminophen 325 Mg Tablet) 650 mg PO Q6H PRN PRN Reason: Fever >100.4 Stop: 09/25/25 00:01 Hydralazine HCl (Hydralazine Hcl 10 Mg Tablet) 10 mg PO X1 PRN PRN Reason: Hypertensive Emergency Stop: 09/25/25 00:23 Sodium Chloride (Ns) 1,000 mls @ 75 mls/hr IV .[id number] FRANCISCO JAVIER Stop: 09/25/25 00:14 Ondansetron HCl (Ondansetron Inj 2 Mg/Ml Inj 2 Ml) 4 mg IVP Q6H PRN; Protocol PRN Reason: NAUSEA OR VOMITING Stop: 09/25/25 00:01 Oxycodone/Acetaminophen (Oxycodone/Apap 5/325 Tablet) 1 tab PO Q6HR PRN PRN Reason: PAIN SCALE 4-10(Mod-Sev Stop: 08/31/25 00:21 Pantoprazole Sodium (Pantoprazole Inj 40 Mg Vial) 40 mg IVP BID FRANCISCO JAVIER Stop: 09/25/25 08:59 Discontinued Medications Al Hydrox/Mg Hydrox/Simethicone (Mg Hyd/Al Hyd/Yg (Maalox Reg) Susp 30 Ml Udc) 30 ml PO X1 ONE Stop: 08/26/25 00:23 Famotidine (Famotidine Inj 10 Mg/Ml Vial 2 Ml) 20 mg IVP X1 ONE Stop: 08/25/25 17:30 Last Admin: 08/25/25 18:02 Dose: 20 mg Lactated Ringer's (Lactated Ringers) 1,000 mls @ 999 mls/hr IV .Q1H1M ONE Stop: 08/25/25 18:29 Last Infusion: 08/25/25 19:25 Dose: Infused Ceftriaxone Sodium/Dextrose (Rocephin/D5w 1gm Iv Premix) 1 gm in 50 mls @ 100 mls/hr IV X1 ONE Stop: 08/25/25 17:58 Last Infusion: 08/25/25 18:32 Dose: Infused Lactated Ringer's (Lactated Ringers) 1,000 mls @ 999 mls/hr IV .Q1H1M ONE Stop: 08/25/25 18:29 Last Infusion: 08/25/25 20:22 Dose: Infused Ondansetron HCl (Ondansetron Inj 2 Mg/Ml Inj 2 Ml) 4 mg IVP X1 ONE; Protocol Stop: 08/25/25 17:30 Last Admin: 08/25/25 19:13 Dose: Not Given Assessment & Plan Plan Summary: 45-year-old female with past medical history of hypertension, diabetes, and hyperlipidemia presented to the ED in the evening of 08/25/2025 with intractable nausea and vomiting. Patient mentioned that she has had midepigastric pain and associated nausea and vomiting for the past year. She was found to have a creatinine of 2.2 and BUN of 32. She received 2 L of fluid in the ED and her creatinine improved to 2.0. She was also found to have a UTI. She denied dysuria frequency or urgency. Of note the patient was scheduled on August 30 for a hernia repair surgery with a surgeon in [place]. She mentioned that it was canceled due to her having an arrhythmia. She follows Dr. Yang for cardiology. Patient was admitted to observation for intractable nausea and vomiting, ORLIN, and UTI. #Intractable nausea and vomiting * Patient presented with a year history of a constant dull ache in her mid epigastric region with associated sporadic vomiting * Lipase negative, alk phos negative * Patient mentions that she drinks alcohol socially, low suspicion for alcoholic pancreatitis * Patient denied taking NSAIDs, low suspicion for NSAID induced gastritis or bleeding gastric ulcer, pain is not associated with meals * EGD on 01/12/2025 showed diaphragmatic hernia without obstruction or gangrene, gastroesophageal reflux disease with esophagitis no bleeding * Given the patient's history and EGD imaging, most likely differential is esophagitis secondary to GERD Plan: * Pantoprazole 40 mg IV twice daily * Oxycodone 1 tab every 6 hours as needed for pain * Clear liquid diet * Maalox given x 1, consider as needed #ORLIN * Patient presented with BUN 32, creatinine 2.2 * Improved to BUN 26, creatinine 2.0 after 2 L of fluid * May reflect acute volume loss secondary to nausea and vomiting * Acute volume loss may also be reflected by contraction alkalosis due to loss of HCl: * Volume loss->RAAS activation->sodium reabsorbed in exchange for loss of H and K ions->worsens alkalosis * K should be low, patient's was 3.9, the fact that her potassium improved to 4.3 may reinforce this hypothesis * Patient also presented with chloride 94 and bicarb 31.8, which improved to chloride of 97 and bicarb 30.1 after receiving fluids Plan: * IV fluids sodium chloride resuscitation 75 mL/h * Holding home diuretics * Avoiding nephrotoxic * Renally dose medications #UTI * Urinalysis: Turbid, 7 RBC, 30 WBC, 7 squamous epithelial cells, 3+ bacteria, leukocyte esterase positive * Patient denied dysuria, afebrile, no leukocytosis * Received 1 g of ceftriaxone in the ED Plan: * Urine cultures pending * Because the patient received a one-time dose of ceftriaxone and is asymptomatic, will monitor for now #Ved-[id number] type 2 diabetes melitis * Per patient history * Patient takes metformin 1000 mg p.o. twice daily at home * Last A1c was 6.8 per patient Plan: * Insulin sliding scale #Bilateral renal scarring * CTAP without contrast showed atrophic left kidney with significant left renal scarring, moderate right renal scarring * Patient was unaware of this finding, does not follow Dr. Outpatient Plan: * No direct intervention at this time * Consider referral to nephrology #Incidental finding uterine fundal mass * CTAP without contrast showed 3 cm uterine fundal mass Plan: * No direct intervention at this time * Consider outpatient referral to gynecology Hospital Maintenance: DVT ppx: SCDs GI ppx: Pantoprazole 40 mg IV twice daily Diet: Clear liquid IV lines: Peripheral IVs Code status: DNR/DNI Dispo: MedSurg for observation of intractable nausea and vomiting, pain and nausea management. Patient was seen and discussed with my attending physician Dr. Karen CARRILLO and my senior resident Dr. Fabi LOU PGY-2. Stoney Bonds DO PGY-1.
--- NOTE | 2025-08-26 00:27 | PD.RESHP ---
Documentation for date of: 08/26/25 [facility] History of Present Illness History of present illness: HPI: 45-year-old female with past medical history of hypertension, diabetes, and hyperlipidemia presented to the ED in the evening of 08/25/2025 with intractable nausea and vomiting. Patient mentioned that she has had midepigastric pain and associated nausea and vomiting for the past year. She stated that it is difficult to remember which days she has had vomiting but endorsed a constant dull ache in the mid epigastric region that has been going on for the past year. It is not associated with meals and occurs when she first wakes up in the morning. She denied diarrhea hematochezia or melena. She was found to have a creatinine of 2.2 and BUN of 32. She received 2 L of fluid in the ED and her creatinine improved to 2.0. She was also found to have a UTI. She denied dysuria frequency or urgency. Of note the patient was scheduled on August 30 for a hernia repair surgery with a surgeon in [place]. She mentioned that it was canceled due to her having an arrhythmia. She follows Dr. Yang for cardiology. Patient was admitted to observation for intractable nausea and vomiting, ORLIN, and UTI. ED Course: Significant vitals on arrival: Vitals within normal limits on arrival Significant labs: Chloride 94, bicarb 31.8, BUN 32, creatinine 2.2, glucose 157 Imaging: CTAP without contrast showed atrophic left kidney with significant left renal scarring, moderate right renal scarring, mild thickening of the rectal wall, 3 cm uterine fundal mass. Urine: Turbid, 7 RBC, 30 WBC, 7 squamous epithelial cells, 3+ bacteria, leukocyte esterase positive ED intervention: Patient received 1 g ceftriaxone, 20 mg IV push famotidine, 2 L of LR, 4 mg IV push of ondansetron, and Maalox History: Past medical history: As above in HPI Surgical history: Noncontributory Social history: Occasional alcohol, denies tobacco or illicit drug use Allergies: Milk, causes diarrhea Home Medications: (Pending Med Rec) Chlorthalidone 25 mg daily Metformin 1000 mg p.o. twice daily Ondansetron 4 mg p.o. every 8 hours as needed Pantoprazole 40 mg daily Valsartan 40 mg daily CODE STATUS: DNR/DNI Review of Systems Review of Systems Narrative Review of Systems: Review of Systems: General: Denies fevers, chills. HEENT: Denies headache, congestion, or sore throat. Cardiac: Denies chest pain or palpitations. Pulmonary: Denies shortness of breath or cough. GI: 1 year history of mid epigastric dull aching pain that is constant, sporadic vomiting over the past year. Denies diarrhea, constipation, melena, or hematochezia. : Denies dysuria, hematuria, frequency, or urgency. MSK: Denies pain in the extremities, joints, or myalgias. Neuro: Denies weakness, numbness, vision changes, or speech difficulty. Exam Vital Signs Temp Pulse Resp BP Pulse Ox O2 Del Method 98.5 F 56 L 16 150/84 H 99 Room Air 08/26/25 00:01 08/26/25 00:01 08/26/25 00:01 08/26/25 00:01 08/26/25 00:01 08/26/25 00:01 Narrative Exam General: Awake and in no acute distress. Conversational and non-toxic appearing. Neurologic: GCS 15. Alert and oriented x3, no gross neurological deficit, and patient able to move all 4 extremities. HEENT: Normocephalic, atraumatic, mucous membranes moist. Pupils reactive to light. Heart: Regular rate and rhythm, normal S1 and S2, no murmurs. Lungs: Clear to auscultation bilaterally with no wheezing or crackles. Abdomen: Pain on deep palpation of the mid epigastric region, no guarding or rebound tenderness. Extremities: No edema. 2+ radial and dorsalis pedis pulses bilaterally. Skin: Warm. Dry. No rash or ecchymoses. Results: Labs 08/25/25 11:22 08/25/25 20:39 Labs: Short CBC 08/25/25 Range/Units 11:22 WBC 9.4 (3.6-11.0) Thou/mm3 Hgb 12.5 (12.0-16.0) g/dL Hct 36.9 (36.0-46.0) % Plt Count 312 (140-440) Thou/mm3 [facility] 08/25/25 08/25/25 11:22 20:39 Sodium 137 136 Potassium 3.9 4.3 Chloride 94 L 97 L Carbon Dioxide 31.8 H 30.1 BUN 32 H 26 H Creatinine 2.2 H 2.0 H Glucose 157 H 147 H Calcium 10.1 9.3 Liver Function 08/25/25 Range/Units 11:22 Total Bilirubin 0.5 (0.3-1.2) mg/dL AST 15 (0-34) U/L ALT 9 L (10-49) U/L Alkaline Phosphatase 57 (46-116) U/L Albumin 4.9 (3.5-5.0) gm/dL Urine 08/25/25 Range/Units 11:30 Urine Color Yellow (Lt Yel-Yel) Urine Clarity Turbid A (Clear/Hazy) Urine pH 6.5 (5.0-7.0) Ur Specific [place] 1.019 (1.001-1.035) Urine Protein Trace (Neg - Trace) Urine Glucose (UA) Negative (Negative) Quality Measures Quality Measures VTE prophylaxis Medications Home Medications and Allergies Home Medications ?Medication ?Instructions ?Recorded ?Confirmed ?Type metformin 1,000 mg tablet 1,000 mg PO BID 05/11/24 02/08/25 History valsartan 40 mg tablet 40 mg PO QDAY 05/11/24 02/08/25 History chlorthalidone 25 mg tablet 25 mg PO QDAY 01/12/25 02/08/25 History pantoprazole 40 mg tablet,delayed 40 mg PO QAM 01/12/25 02/08/25 History release Allergies Allergy/AdvReac Type Severity Reaction Status Date / Time milk Allergy Severe Diarrhea Verified 08/25/25 10:34 Visit Medications Acetaminophen (Acetaminophen 325 Mg Tablet) 650 mg PO Q6H PRN PRN Reason: Fever >100.4 Stop: 09/25/25 00:01 Hydralazine HCl (Hydralazine Hcl 10 Mg Tablet) 10 mg PO X1 PRN PRN Reason: Hypertensive Emergency Stop: 09/25/25 00:23 Sodium Chloride (Ns) 1,000 mls @ 75 mls/hr IV .[id number] FRANCISCO JAVIER Stop: 09/25/25 00:14 Ondansetron HCl (Ondansetron Inj 2 Mg/Ml Inj 2 Ml) 4 mg IVP Q6H PRN; Protocol PRN Reason: NAUSEA OR VOMITING Stop: 09/25/25 00:01 Oxycodone/Acetaminophen (Oxycodone/Apap 5/325 Tablet) 1 tab PO Q6HR PRN PRN Reason: PAIN SCALE 4-10(Mod-Sev Stop: 08/31/25 00:21 Pantoprazole Sodium (Pantoprazole Inj 40 Mg Vial) 40 mg IVP BID FRANCISCO JAVIER Stop: 09/25/25 08:59 Discontinued Medications Al Hydrox/Mg Hydrox/Simethicone (Mg Hyd/Al Hyd/Yg (Maalox Reg) Susp 30 Ml Udc) 30 ml PO X1 ONE Stop: 08/26/25 00:23 Famotidine (Famotidine Inj 10 Mg/Ml Vial 2 Ml) 20 mg IVP X1 ONE Stop: 08/25/25 17:30 Last Admin: 08/25/25 18:02 Dose: 20 mg Lactated Ringer's (Lactated Ringers) 1,000 mls @ 999 mls/hr IV .Q1H1M ONE Stop: 08/25/25 18:29 Last Infusion: 08/25/25 19:25 Dose: Infused Ceftriaxone Sodium/Dextrose (Rocephin/D5w 1gm Iv Premix) 1 gm in 50 mls @ 100 mls/hr IV X1 ONE Stop: 08/25/25 17:58 Last Infusion: 08/25/25 18:32 Dose: Infused Lactated Ringer's (Lactated Ringers) 1,000 mls @ 999 mls/hr IV .Q1H1M ONE Stop: 08/25/25 18:29 Last Infusion: 08/25/25 20:22 Dose: Infused Ondansetron HCl (Ondansetron Inj 2 Mg/Ml Inj 2 Ml) 4 mg IVP X1 ONE; Protocol Stop: 08/25/25 17:30 Last Admin: 08/25/25 19:13 Dose: Not Given Assessment & Plan Plan Summary: 45-year-old female with past medical history of hypertension, diabetes, and hyperlipidemia presented to the ED in the evening of 08/25/2025 with intractable nausea and vomiting. Patient mentioned that she has had midepigastric pain and associated nausea and vomiting for the past year. She was found to have a creatinine of 2.2 and BUN of 32. She received 2 L of fluid in the ED and her creatinine improved to 2.0. She was also found to have a UTI. She denied dysuria frequency or urgency. Of note the patient was scheduled on August 30 for a hernia repair surgery with a surgeon in [place]. She mentioned that it was canceled due to her having an arrhythmia. She follows Dr. Yang for cardiology. Patient was admitted to observation for intractable nausea and vomiting, ORLIN, and UTI. #Intractable nausea and vomiting Patient presented with a year history of a constant dull ache in her mid epigastric region with associated sporadic vomiting Lipase negative, alk phos negative Patient mentions that she drinks alcohol socially, low suspicion for alcoholic pancreatitis Patient denied taking NSAIDs, low suspicion for NSAID induced gastritis or bleeding gastric ulcer, pain is not associated with meals EGD on 01/12/2025 showed diaphragmatic hernia without obstruction or gangrene, gastroesophageal reflux disease with esophagitis no bleeding Given the patient's history and EGD imaging, most likely differential is esophagitis secondary to GERD Plan: Pantoprazole 40 mg IV twice daily Oxycodone 1 tab every 6 hours as needed for pain Clear liquid diet Maalox given x 1, consider as needed #ORLIN Patient presented with BUN 32, creatinine 2.2 Improved to BUN 26, creatinine 2.0 after 2 L of fluid May reflect acute volume loss secondary to nausea and vomiting Acute volume loss may also be reflected by contraction alkalosis due to loss of HCl: Volume loss->RAAS activation->sodium reabsorbed in exchange for loss of H and K ions->worsens alkalosis K should be low, patient's was 3.9, the fact that her potassium improved to 4.3 may reinforce this hypothesis Patient also presented with chloride 94 and bicarb 31.8, which improved to chloride of 97 and bicarb 30.1 after receiving fluids Plan: IV fluids sodium chloride resuscitation 75 mL/h Holding home diuretics Avoiding nephrotoxic Renally dose medications #UTI Urinalysis: Turbid, 7 RBC, 30 WBC, 7 squamous epithelial cells, 3+ bacteria, leukocyte esterase positive Patient denied dysuria, afebrile, no leukocytosis Received 1 g of ceftriaxone in the ED Plan: Urine cultures pending Because the patient received a one-time dose of ceftriaxone and is asymptomatic, will monitor for now #[id number] type 2 diabetes melitis Per patient history Patient takes metformin 1000 mg p.o. twice daily at home Last A1c was 6.8 per patient Plan: Insulin sliding scale #Bilateral renal scarring CTAP without contrast showed atrophic left kidney with significant left renal scarring, moderate right renal scarring Patient was unaware of this finding, does not follow Outpatient Plan: No direct intervention at this time Consider referral to nephrology #Incidental finding uterine fundal mass CTAP without contrast showed 3 cm uterine fundal mass Plan: No direct intervention at this time Consider outpatient referral to gynecology Hospital Maintenance: DVT ppx: SCDs GI ppx: Pantoprazole 40 mg IV twice daily Diet: Clear liquid IV lines: Peripheral IVs Code status: DNR/DNI Dispo: MedSurg for observation of intractable nausea and vomiting, pain and nausea management. Patient was seen and discussed with my attending physician Dr. Karen CARRILLO and my senior resident Dr. Fabi LOU PGY-2. Stoney Bonds DO PGY-1.
[2025-08-26] MEDS: SODIUM CHLORIDE 0.9% 1000 ML 1,000 ML 75 ML IV (00:31)
[2025-08-26] MEDS: MG HYD/AL HYD/SIME (Maalox Reg) SUSP 30 ML UDC PO (00:54)
[2025-08-26 03:28] LABS: Amphetamine/Methamp Scrn,U Negative (Negative); Barbiturate Screen,Urine Negative (Negative); Benzodiazepines Screen,Urine Negative (Negative); Benzoylecgonine Screen, Ur Negative (Negative); Fentanyl Screen,Urine Negative (Negative); Opiate Screen,Urine Negative (Negative); THC Screen,Urine Negative (Negative)
--- NOTE | 2025-08-26 04:36 | XR_ITS ---
Examination: Retroperitoneal ultrasound, complete Technique: Multiple high resolution grayscale images of the retroperitoneum obtained, including kidneys and bladder. Exam date and time: August 26, 2025, 0751 hours INDICATIONS: CT examination August 25, 2025 atrophic left kidney with significant left renal scar formation. Abdominal pain history. FINDINGS: Right kidney 10.5 cm renal cortex 1.7 cm Left kidney 8.8 cm renal cortex 1.6 cm No renal calculi or hydronephrosis Moderate right and advanced left renal scar formation Contracted urinary bladder no bladder mass IMPRESSION: Small left kidney Moderate right and advanced left renal scar formation
[2025-08-26 04:58] LABS: Lactate (Lactic Acid) 1.0 mMol/L (0.4-2.0)
[2025-08-26 05:00] LABS: Basophils # (Auto) 0.1 Thou/mm3 (0.0-0.2); Basophils % (Auto) 1 % (0-2.5); Eosinophils # (Auto) 0.1 Thou/mm3 (0.0-0.5); Eosinophils % (Auto) 2 % (0-10); Hematocrit 33.8 % (36.0-46.0); Hemoglobin 11.2 g/dL (12.0-16.0); Immature Granulocytes Auto 0.05 Thou/mm3 (0.00-0.00); Lymphocytes # (Auto) 2.8 Thou/mm3 (1.0-4.8); Lymphocytes % (Auto) 37 % (10-50); Mean Corpuscular HGB Conc 33.1 g/dl (31.0-37.0); Mean Corpuscular Hemoglobin 28.7 pg (25.0-35.0); Mean Corpuscular Volume 87 fL (80-100); Monocytes # (Auto) 1.1 Thou/mm3 (0.0-0.8); Monocytes % (Auto) 15 % (0-12); Neutrophils # (Auto) 3.4 Thou/mm3 (1.8-7.7); Neutrophils % (Auto) 45 % (37-80); Nucleated Red Blood Cell # 0.00 Thou/mm3 (0.00-0.00); Nucleated Red Blood Cell % 0 /100 WBC (0); Platelet Count 268 Thou/mm3 (140-440); RDW Standard Deviation 42.9 fL (36.4-46.3); Red Blood Count 3.90 Miln/mm3 (4.00-5.20); White Blood Count 7.6 Thou/mm3 (3.6-11.0)
[2025-08-26] MEDS: SODIUM CHLORIDE 0.9% 1000 ML 1,000 ML 100 ML IV ×2 (05:53→14:51)
[2025-08-26 06:13] LABS: Alanine Aminotransferase < 7 U/L (10-49); Albumin, Serum 4.1 gm/dL (3.5-5.0); Albumin/Globulin Ratio 1.5 (1.2-2.2); Alkaline Phosphatase 46 U/L (46-116); Anion Gap 12 (7-16); Aspartate Amino Transferase 13 U/L (0-34); BUN/Creatinine Ratio 15 Ratio (12-20); Bilirubin,Total 0.4 mg/dL (0.3-1.2); Blood Urea Nitrogen 24 mg/dL (9-23); Calcium 9.3 mg/dL (8.3-10.6); Calcium (Corrected) 9.3 mg/dL (8.5-10.1); Carbon Dioxide 28.7 mMol/L (20.0-31.0); Cardiac Risk Estimate 3.1 RATIO (3.7-5.6); Chloride 100 mMol/L (98-107); Cholesterol 161 mg/dL (132-200); Creatinine (Component) 1.6 mg/dL (0.6-1.3); Estimated Creatinine Clearance 43.7 mL/min (>60); Globulin 2.8 gm/dL (2.3-3.5); Glucose 131 mg/dL (74-106); HDL Cholesterol 52 mg/dL (40-60); LDL Cholesterol,Calculated 75 mg/dL (0-130); Magnesium 1.9 mg/dL (1.6-2.6); Osmolality,Calculated 287 (275-295); Potassium 3.8 mMol/L (3.4-5.1); Sodium 141 mMol/L (136-145); Thyroid Stimulating Hormone 1.20 uIU/mL (0.55-4.78); Total Protein 6.9 gm/dL (5.7-8.2); Triglycerides 168 mg/dL (30-150); eGFR 41 See Note
[2025-08-26] MEDS: ONDANSETRON INJ 2 MG/ML INJ 2 ML 4 MG IVP (07:36)
--- NOTE | 2025-08-26 14:44 | ESDS_ITS ---
<Statement entered by Denis Crowley MD - 08/26/25 15:03> Patient was examined and case was reviewed with team including attending physician. Note reviewed, I agree with most of its contents and agree with the patient's care as documented by Hira Crowley MD PGY-2 Planned Discharge Date 08/26/25 DS: Providers Provider Date of admission: 08/26/25 00:02 Primary care physician: Physician No Primary/Family Admitting Provider: Zhao Jones DO Attending Provider on Admission: Zhao Jones DO Attending Provider on DC: Renato Keen MD Discharging Provider: Gumaro Iniguez DO Anticipated date of discharge: 08/26/25 DS: Diagnosis Problem List Completed Was Problem List Reviewed/Reconciled?: Yes Hospital Course Hospital Course Hospital course: Ms. Carrillo is a 45 year old Vietnamese speaking female with history of hypertension, diabetes, and hyperlipidemia presented to the ED in the evening of 08/25/2025 with intractable nausea and vomiting for the past year. Patient also endorsed midepigastric pain that is worse after eating. She described the pain as a burning sensation, non radiating, localized centrally to her epigastric region. Her nausea is also made worse with food. She denied diarrhea hematochezia or melena. Of note, patient had a known gastric hernia and was schedule for a hernia surgery that was cancelled due to arrhythmia found by her reflector driller and deburrer, Dr. Yang, in [place]. Initial creatinine level was 2.2 on arrival, and improved to 1.6 after receiving ~ 3L of fluid. CT abdomen revealed anteverted uterus with 3cm uterine fundal mass and atrophic left kidney. Urinalysis revealed 30 WBC, leukocyte positive, 3+ bacteria, but with 7 squamous epithelial cell, the specimen was likely contaminated. Given patient denied dysuria, polyuria, suprapubic pain, fever, or CVA tenderness, antibiotics are not warranted per IDSA guideline for asymptomatic bacteruria. On day of discharge, patient was tolerating solid food well without vomiting or feeling nauseous. She was advised to continue follow up with general surgery outpatient for her gastric hernia as this may contribute to her nausea, vomiting, and GERD. At this time, patient is medically and physically stable for discharge for home. All questions and concerns addressed, plan of care discussed with patient, return precautions given. Diagnosis: #Intractable nausea and vomiting #ORLIN #Asymptomatic bacteruria #Bif-unusjun-wekeeymuw type 2 diabetes melitis #Bilateral renal scarring #Uterine fundal mass #Depression #Hypertension #GERD #Hiatal hernia Discharge Plan: * Please take ondansetron for nausea/vomiting, and pantoprazole for abdominal pain, consider speaking to your PCP with regards to your depression medication as these can contribute to recurrent nausea and vomiting. * Follow up with your surgeon with regards to your hernia repair * Follow-up with your PCP and/or [facility] for incidental Anteverted uterus w ith 3 cm uterine fundal mass seen on CT. * Follow-up with your PCP for incidental atrophic left kidney with significant left renal scar formation, moderate right renal scar formation seen on CT. Consider referral to nephrology. * Continue taking medications as prescribed below. * Return to Emergency Room if symptoms persist, worsen, or new symptoms develop. Case discussed with my senior resident Dr. Herring Case discussed with my attending Dr. Leonila Perdueh, PGY 1 Status at Discharge Overall status at discharge: patient is back to baseline Time Spent with Patient Time attestation: Total time spent providing and/or coordinating discharge services: Time spent: Greater than 30 minutes Exam Vital Signs Temp Pulse Resp BP Pulse Ox O2 Del Method 97.3 F 57 L 18 138/81 H 94 L Room Air 08/26/25 11:56 08/26/25 11:56 08/26/25 11:56 08/26/25 11:56 08/26/25 11:56 08/26/25 11:56 Narrative Exam General: Alert, oriented, in no acute distress. HEENT: Normocephalic, atraumatic. Neck: Supple, no JVD Cardiovascular: Regular rate and rhythm. No murmurs, rubs, or gallops. Respiratory: Clear to auscultation bilaterally. No wheezes, rales, or rhonchi. Normal respiratory effort. Abdomen: Soft, nontender, nondistended. Bowel sounds normal. No masses or organomegaly. Musculoskeletal: Full range of motion in all extremities. No joint swelling, tenderness, or deformities. Skin: Warm, dry, intact. No rashes or lesions. Psychiatric: Calm, cooperative, appropriate mood and affect. Discharge Plan Plan Patient Disposition: HOME (Self Care) Care Plan Goals: Realice un seguimiento con hilton m?dico de cabecera dentro de 1 a 2 semanas despu?s del tory. * [place] ondansetr?n para las n?useas/v?mitos y pantoprazol para el dolor abdominal; considere hablar con hilton m?dico de cabecera sobre hilton medicaci?n para la depresi?n, ya que esta puede contribuir a la recurrencia de n?useas y v?mitos. * Realice un seguimiento con hilton cirujano con respecto a la reparaci?n de hilton hernia. * Realice un seguimiento con hilton m?dico de cabecera y/o ginec?logo por la presencia incidental de un ?tero antevertido con zhao masa de 3 cm en el fondo uterino, observada en la tomograf?a computarizada. * Realice un seguimiento con hilton m?dico de cabecera por la presencia incidental de un ri??n arian atr?fico con formaci?n significativa de cicatrices renales izquierdas y formaci?n moderada de cicatrices renales derechas, observadas en la tomograf?a computarizada. Considere zhao derivaci?n a nefrolog?a. * Contin?e tomando los medicamentos seg?n lo recetado a continuaci?n. * Regrese a la misha de emergencias si los s?ntomas persisten, empeoran o aparecen nuevos s?ntomas. * Follow-up with PCP within 1-2 weeks of discharge. * Please take ondansetron for nausea/vomiting, and pantoprazole for abdominal pain, consider speaking to your PCP with regards to your depression medication as these can contribute to recurrent nausea and vomiting. * Follow up with your surgeon with regards to your hernia repair * Follow-up with your PCP and/or [facility] for incidental Anteverted uterus with 3 cm uterine fundal mass seen on CT. * Follow-up with your PCP for incidental atrophic left kidney with significant left renal scar formation, moderate right renal scar formation seen on CT. Consider referral to nephrology. * Continue taking medications as prescribed below. * Return to Emergency Room if symptoms persist, worsen, or new symptoms develop. Prescriptions/Referrals Prescriptions/Med Rec: New ondansetron 8 mg tablet,disintegrating 8 mg PO Q8H PRN (Reason: nausea and vomiting) Qty: 30 0RF pantoprazole 40 mg tablet,delayed release (DR/EC) 40 mg PO QDAY Qty: 30 0RF Continued (DME) blood-glucose meter [Accu-Chek Guide Glucose Meter] Misc See Rx Instructions .Route Qty: 1 0RF Rx Instructions: As directed (DME) Advanced Gluc Meter Test Strip Strip See Rx Instructions .Route Qty: 100 0RF Rx Instructions: As directed (DME) lancets 17 gauge misc See Rx Instructions .Route Qty: 100 0RF Rx Instructions: As directed (DME) pen needle, diabetic [1st Tier Unifine Pentips] 29 gauge x 1/2 needle See Rx Instructions .Route Qty: 100 0RF Rx Instructions: As directed chlorthalidone 25 mg tablet 25 mg PO QDAY ondansetron 4 mg tablet,disintegrating 4 mg PO Q8H PRN (Reason: nausea and vomiting) Qty: 14 0RF metformin 1,000 mg Tablet 1,000 mg PO BID valsartan 40 mg Tablet 40 mg PO QDAY (DME) FreeStyle Test Strip See Rx Instructions .Route Qty: 100 0RF Rx Instructions: As directed escitalopram oxalate 5 mg tablet 5 mg PO QDAY Patient Comments: TOME 1 TABLETA POR V A ORAL TODOS LOS D metoprolol tartrate 25 mg tablet 25 mg PO Q12H Patient Comments: TOME 1 TABLETA POR V A ORAL DOS VECES AL D A Januvia 100 mg tablet 100 mg PO QDAY Eliquis 5 mg tablet 5 mg PO QDAY amiodarone 200 mg tablet 200 mg PO QDAY simvastatin 20 mg tablet 20 mg PO HS venlafaxine 75 mg capsule,extended release 24hr 75 mg PO QDAY Patient Comments: TAKE 1 CAPSULE POR V A ORAL ONCE A DAY Referrals: No Primary/Family,Physician [Primary Care Provider] Patient/Caregiver Discharge Instructions Discharge Activity: activity as tolerated Education Materials: Hypertension and Kidney Disease, Self-Care for Vomiting and Diarrhea Print Language: Vietnamese Stand Alone Forms: [facility] Award Info., Patient Portal Info Letter, Work/Release Restrictions Discharge Order Discharge Orders: Discharge (Routine); Ordered 08/26/25 Ordered By: Gumaro Hira Quality Discharge Quality Measures none MD Attestestation MD Attestation I have examined the patient, reviewed labs and imaging findings, discussed the case with the resident(s), and reviewed entered orders. I agree with the plan of care as outlined in this note. Time Spent; [address] Leonila MD
== END 2025-08-26 15:56 | disposition home or self-care (01) ==
LOC: SERX 22:42 → SERHOLD 08-26 00:43 → S3NX 08-26 04:58
PROVIDERS: Nurse Practitioner Family; Nurse Practitioner Primary Care; Admitting Provider Internal Medicine; Emergency Provider Emergency Medicine; Visit Provider Internal Medicine
DX: R11.2 Nausea with vomiting, unspecified (principal); N17.9 Acute kidney failure, unspecified; F32.A Depression, unspecified; K21.9 Gastro-esophageal reflux disease without esophagitis; K44.9 Diaphragmatic hernia without obstruction or gangrene; I10 Essential (primary) hypertension; E11.9 Type 2 diabetes mellitus without complications; E78.5 Hyperlipidemia, unspecified; N26.1 Atrophy of kidney (terminal); N85.4 Malposition of uterus; Z66 Do not resuscitate; N39.0 Urinary tract infection, site not specified
CPT/HCPCS: 36415; 74176; 76770; 80048; 80053; 80061; 80307; 81001; 81025; 83605; 83690; 83735; 84443; 85025; 87077; 87086; 87186; 96361; 96365; 96375; 99284; G0378; J0696; J2405; J2470; J3490; J7030; J7120; A9270